=== PATIENT | female | born 1975 | race African-American/Black ===

== ENCOUNTER 2017-07-11 02:00 | Emergency (ER) | payer SELFPAY ==
[2017-07-11 02:52] LABS: URINE HCG POC HCG NEGATIVE (Negative)
[2017-07-11 02:53] LABS: BILIRUBIN,URINE SMALL (NEG); CLARITY,URINE CLOUDY; COLOR,URINE YELLOW; GLUCOSE,URINE NEGATIVE (NEG); NITRITE,URINE NEGATIVE (NEG); PROTEIN,URINE 30 mg/dL (NEG-TRACE)
[2017-07-11 03:07] LABS: RBC,URINE 0 /HPF (0-2)
[2017-07-11 03:08] LABS: BACTERIA,URINE 0 /HPF (0-FEW); SQUAMOUS EPITHELIAL CELL,UR MANY /LPF
[2017-07-11 03:26] LABS: BASO % 0 % (0-3); EOS % 0 % (0-3); HEMATOCRIT 35.3 % (36.0-47.0); HEMOGLOBIN 11.3 g/dL (12.0-15.5); LYMPH % 27 % (24-48); MEAN CORPUSCULAR HEMOGLOBIN 25 pg (25-35); MEAN CORPUSCULAR HGB CONC 32 g/dL (31-37); MEAN CORPUSCULAR VOLUME 78 fL (79-100); MONO # 0.7 x10^3/uL (0.0-1.1); MONO % 19 % (0-9); NEUT # 2.1 x10^3uL (1.8-7.7); NEUT % 54 % (31-73); PLATELET COUNT 217 x10^3/uL (140-400); RED BLOOD COUNT 4.53 x10^6/uL (3.50-5.40); RED CELL DISTRIBUTION WIDTH 16.7 % (11.5-14.5); WHITE BLOOD COUNT 3.8 x10^3/uL (4.0-11.0)
[2017-07-11 03:29] LABS: ADD MAN DIFF? YES
[2017-07-11 03:45] LABS: ALBUMIN 3.2 g/dL (3.4-5.0); ALBUMIN/GLOBULIN RATIO 0.7 (1.0-1.7); ALK PHOS 52 U/L (46-116); ALT (SGPT) 21 U/L (14-59); ANION GAP 10 (6-14); AST (SGOT) 28 U/L (15-37); BLOOD UREA NITROGEN 10 mg/dL (7-20); BUN/CREATININE RATIO 11 (6-20); CALCIUM 8.4 mg/dL (8.5-10.1); CARBON DIOXIDE 25 mmol/L (21-32); CHLORIDE 105 mmol/L (98-107); CREATININE 0.9 mg/dL (0.6-1.0); GFR 83.9; GLUCOSE 105 mg/dL (70-99); LIPASE 66 U/L (73-393); SODIUM 140 mmol/L (136-145); TOTAL BILIRUBIN 0.2 mg/dL (0.2-1.0); TOTAL PROTEIN 7.5 g/dL (6.4-8.2)
[2017-07-11 03:46] LABS: POTASSIUM 2.9 mmol/L (3.5-5.1)
[2017-07-11 03:47] LABS: TROPONINI < 0.017 ng/mL (0.000-0.055)
[2017-07-11 03:53] LABS: NEG OBC SER NEG; POS OBC SER POS; PREG TEST PT QUAL NEGATIVE (NEG)
[2017-07-11] MEDS: POTASSIUM CHLORIDE 20 MEQ TABLET.ER. PO (04:39)
[2017-07-11 05:09] LABS: % BANDS 1 % (0-9); % LYMPHS 19 % (24-48); % MONOS 22 % (0-10); % SEGS 58 % (35-66); PLT ESTIMATE ADEQUATE (ADEQUATE); TOXIC VACUOLATION MOD
== END 2017-07-11 04:45 | disposition home or self-care (01) ==
LOC: ER 02:00
DX: S09.90XA Unspecified injury of head, initial encounter (principal); S39.012A Strain of muscle, fascia and tendon of lower back, initial encounter; M54.2 Cervicalgia; E87.6 Hypokalemia; F17.210 Nicotine dependence, cigarettes, uncomplicated; F14.10 Cocaine abuse, uncomplicated; F19.10 Other psychoactive substance abuse, uncomplicated; F15.20 Other stimulant dependence, uncomplicated; X58.XXXA Exposure to other specified factors, initial encounter; Y93.89 Activity, other specified; Y92.89 Other specified places as the place of occurrence of the external cause; Y99.8 Other external cause status
CPT/HCPCS: 36415; 70450; 72100; 72125; 80053; 81001; 81025; 83690; 84484; 84703; 85007; 85025; 93005; 99285-25